=== PATIENT | female | born 1995 | race Two or more races ===

== ENCOUNTER → 2017-04-09 | Outpatient (REF) | payer MEDICAID ==
[2017-04-09 13:31] LABS: MEAN CORPUSCULAR HEMOGLOBIN 30.3 pg (27.0-33.0); MEAN CORPUSCULAR HGB CONC 34.5 g/dl (32.0-36.5); MEAN CORPUSCULAR VOLUME 87.8 fl (80.0-96.0); RED CELL DISTRIBUTION WIDTH 13.1 % (11.5-14.5); WHITE BLOOD COUNT 10.2 K/mm3 (4.0-10.0)
[2017-04-09 14:56] LABS: HCG, SERUM QUANTITATIVE 9631 MIU/ML
[2017-04-10 11:56] LABS: HBsAg Prenatal NEGATIVE (NEGATIVE)
== END ==
LOC: M LAB REF 12:47
PROVIDERS: ATTEND Advanced Practice Midwife
DX: O36.80X0 Pregnancy with inconclusive fetal viability, not applicable or unspecified (principal)

== ENCOUNTER → 2017-06-19 | Outpatient (CLI) | payer OTHER ==
[2017-06-19 12:48] LABS: MEAN CORPUSCULAR HEMOGLOBIN 30.6 pg (27.0-33.0); MEAN CORPUSCULAR HGB CONC 33.8 g/dl (32.0-36.5); MEAN CORPUSCULAR VOLUME 90.3 fl (80.0-96.0); PLATELET COUNT, AUTOMATED 237 10^3/uL (150-450); RED CELL DISTRIBUTION WIDTH 11.9 % (11.5-14.5)
== END ==
LOC: M LAB 11:12
PROVIDERS: ATTEND Advanced Practice Midwife
DX: Z36.2 Encounter for other antenatal screening follow-up (principal); Z3A.22 22 weeks gestation of pregnancy

== ENCOUNTER → 2017-06-28 | Outpatient (CLI) | payer OTHER | LOC: M LAB 07:53 | PROVIDERS: ATTEND Obstetrics & Gynecology | DX: Z34.82 Encounter for supervision of other normal pregnancy, second trimester (principal) ==

== ENCOUNTER → 2017-07-23 | Outpatient (REF) | payer OTHER | LOC: M LAB REF 16:35 | PROVIDERS: ATTEND Advanced Practice Midwife | DX: Z34.83 Encounter for supervision of other normal pregnancy, third trimester (principal); Z3A.34 34 weeks gestation of pregnancy ==

== ENCOUNTER 2017-08-30 16:24 | Inpatient (IN) | payer OTHER ==
[2017-08-30] MEDS ORDERED: OXYTOCIN DRIP 30 UNITS in APPROPRIATE DILUENT 1 EA IV (19:45)
[2017-08-30] MEDS ORDERED: LR 1,000 ML IV (20:00)
[2017-08-30] MEDS: LACTATED RINGER'S 1000 ML IV (20:16)
[2017-08-30 20:39] LABS: HEMOGLOBIN 8.5 g/dl (12.0-16.0); MEAN CORPUSCULAR HEMOGLOBIN 29.9 pg (27.0-33.0); PLATELET COUNT, AUTOMATED 291 10^3/uL (150-450); RED BLOOD COUNT 2.84 10^6/uL (4.00-5.40); RED CELL DISTRIBUTION WIDTH 12.3 % (11.5-14.5); WHITE BLOOD COUNT 13.7 10^3/uL (4.0-10.0)
[2017-08-30 20:56] LABS: AMPHETAMINES URINE REFLEX NEGATIVE (NEGATIVE); BARBITURATES URINE REFLEX NEGATIVE (NEGATIVE); BENZODIAZEPINES URINE REFLEX NEGATIVE (NEGATIVE); CANNABINOIDS URINE REFLEX NEGATIVE (NEGATIVE); COCAINE METABOLITE URINE REFLE NEGATIVE (NEGATIVE); METHADONE URINE REFLEX NEGATIVE (NEGATIVE); OPIATES URINE REFLEX NEGATIVE (NEGATIVE); PHENCYCLIDINE URINE REFLEX NEGATIVE (NEGATIVE)
[2017-08-31] MEDS ORDERED: FENTANYL 2MCG/ML ROPIVACAINE 0.2% IN 0.9% NACL 200ML IVBAG As Ordered (01:56)
[2017-08-31] MEDS ORDERED: NALOXONE INJ 0.4 MG/1 ML VIAL (J2310) IV (02:00)
[2017-08-31] MEDS ORDERED: FENTANYL/ROPIVACAINE/NACL BAG 200 ML EPIDURAL (02:00)
[2017-08-31] MEDS ORDERED: diphenhydrAMINE INJ 50MG/ML VIAL (J1200) IV (02:00)
[2017-08-31] MEDS ORDERED: REFRIGERATOR IV KEYS XX (02:00)
[2017-08-31] MEDS ORDERED: EPIDURAL/PCA KEYS XX (02:00)
[2017-08-31] MEDS ORDERED: ONDANSETRON 4MG/2ML VIAL (J2405) IV ×2 (02:00→10:30)
[2017-08-31] MEDS ORDERED: EPIDURAL COMMENT XX (02:00)
[2017-08-31] MEDS: PRENATAL VITAMINS CHEWABLE TABLET PO (09:00)
[2017-08-31] MEDS: AMPICILLIN SOD/SULBACTAM SOD 3 GM in D5W MINI-BAG PLUS 100 ML IV ×3 (09:08→22:09)
[2017-08-31 09:49] LABS: CORD GAS ABE A -1.4; CORD GAS HCO3 A 26.3 MEQ/L; CORD GAS O2 SAT A 41.7 %; CORD GAS PCO2 A 55.5 mmHg; CORD GAS PH A 7.293 UNITS; CORD GAS PO2 A 20.7 mmHg; CORD GAS SBC A 21.8 MEQ/L
[2017-08-31 09:55] LABS: CORD GAS ABE V -4.5; CORD GAS HCO3 V 22.9 MEQ/L; CORD GAS O2 SAT V 46.7 %; CORD GAS PCO2 V 50.7 mmHg; CORD GAS PH V 7.273 UNITS; CORD GAS PO2 V 23.2 mmHg; CORD GAS SBC V 19.6 MEQ/L; CORD GAS TCO2 V 24.5 MEQ/L
[2017-08-31] MEDS: OXYTOCIN DRIP 30 UNITS in APPROPRIATE DILUENT 1 EA IV (10:27)
[2017-08-31] MEDS ORDERED: IBUPROFEN 800 MG TAB PO (10:30)
[2017-08-31] MEDS ORDERED: PROMETHAZINE 25 MG TAB PO (10:30)
[2017-08-31] MEDS: METHYLERGONOVINE MALEATE 0.2 MG/ML VIAL (J2210) IM (10:30)
[2017-08-31] MEDS ORDERED: ACETAMINOPHEN 500 MG TAB PO (10:30)
[2017-08-31] MEDS ORDERED: DIBUCAINE 1% OINTMENT 30GM TOP (10:30)
[2017-08-31 12:42] LABS: HEMATOCRIT 32.2 % (36.0-47.0); MEAN CORPUSCULAR HEMOGLOBIN 29.9 pg (27.0-33.0); MEAN CORPUSCULAR HGB CONC 33.9 g/dl (32.0-36.5); MEAN CORPUSCULAR VOLUME 88.5 fl (80.0-96.0); PLATELET COUNT, AUTOMATED 203 10^3/uL (150-450); RED BLOOD COUNT 3.64 10^6/uL (4.00-5.40); RED CELL DISTRIBUTION WIDTH 12.4 % (11.5-14.5); WHITE BLOOD COUNT 22.6 10^3/uL (4.0-10.0)
[2017-08-31 12:59] LABS: HEMOGLOBIN 10.9 g/dl (12.0-16.0)
[2017-08-31] MEDS: LR 1,000 ML IV ×3 (18:20→20:43)
[2017-08-31] MEDS: DOCUSATE SODIUM 100 MG CAP PO (22:09)
[2017-09-01] MEDS: AMPICILLIN SOD/SULBACTAM SOD 3 GM in D5W MINI-BAG PLUS 100 ML IV ×4 (03:09→20:31)
[2017-09-01] MEDS: PRENATAL VITAMINS CHEWABLE TABLET PO (08:22)
[2017-09-01] MEDS: LR 1,000 ML IV (19:00)
[2017-09-01] MEDS: RHOGAM 300 MCG (1500 IU) INJ (J2790) IM (19:03)
[2017-09-01] MEDS: MEASLES,MUMPS,RUBELLA VACCINE INJ (MMR-II) (90707) SC (19:12)
[2017-09-02] MEDS: AMPICILLIN SOD/SULBACTAM SOD 3 GM in D5W MINI-BAG PLUS 100 ML IV ×2 (02:20→08:58)
[2017-09-02] MEDS: LR 1,000 ML IV (02:27)
[2017-09-02] MEDS: PRENATAL VITAMINS CHEWABLE TABLET PO (08:58)
== END 2017-09-02 13:30 | disposition home or self-care (01) | DRG 560 ==
LOC: M LDO 16:24 → M OBS 08-31 13:28 → M LDI 19:38
PROVIDERS: Advanced Practice Midwife
PROC: 10E0XZZ Delivery of Products of Conception, External Approach (ICD-10-PCS; principal; 2017-08-31)
PROC: 0KQM0ZZ Repair Perineum Muscle, Open Approach (ICD-10-PCS; 2017-08-31)
DX: O48.0 Post-term pregnancy (principal); O86.12 Endometritis following delivery; Z37.0 Single live birth; Z3A.40 40 weeks gestation of pregnancy; O70.1 Second degree perineal laceration during delivery; O41.1090 Infection of amniotic sac and membranes, unspecified, unspecified trimester, not applicable or unspecified

== ENCOUNTER 2018-12-26 02:19 | Emergency (ER) | payer MEDICAID, OTHER ==
[~2018-12-26] VITALS: Ht 167.6 cm; Wt 86.4 kg
[~2018-12-26 02:19] MED LIST: IBUP-1114 PO; MAPA500T2 PO; PRENTAB9 PO
[2018-12-26] MEDS ORDERED: AMOXICILLIN 500 MG CAP PO ONE (04:00)
[2018-12-26] MEDS ORDERED: IBUPROFEN 800 MG TAB PO ONE (04:00)
[2018-12-26] MEDS ORDERED: IBUP80TA PO (04:02)
[2018-12-26] MEDS ORDERED: AMOX500C PO (04:02)
[2018-12-26 04:34] VITALS: BP 120/80
== END 2018-12-26 04:37 | disposition home or self-care (01) ==
LOC: M ED 02:19
DX: H66.92 Otitis media, unspecified, left ear (principal)